=== PATIENT | male | born 1960 | race Caucasian/White ===

== ENCOUNTER 2017-12-08 21:01 | Observation (INO) | payer SELFPAY ==
--- NOTE | 2017-12-08 21:10 | ED.PDOC ---
History of Present Illness - General Chief Complaint: Chest Pain/[place] Stated Complaint: chest pain Time Seen by Provider: 12/08/17 21:09 Source: patient Exam Limitations: no limitations - History of Present Illness Initial Comments: Álvaro Davenport 57 y/o male stated that he had been having SOB and feels heart is racing the last 3 days progressively getting worse.Denies chest pain.He has history of paroxysmal A. fib but was placed on aspirin;had one time cardioversion done here in ER Timing/Duration: other - 3 days Severity/Quality: other - no chest pains Location: other - none Chest Pain Radiation: other - none Improving Factors: nothing Worsening Factors: nothing Nitro Today/Relief: 0.4 mg x 1, provided by ED Aspirin Treatment Today: 81 mg x 4, provided by ED Associated Symptoms: fatigue, shortness of breath Allergies/Adverse Reactions: Allergies NO KNOWN ALLERGY Allergy (Verified 12/08/17 22:07) Review of Systems - Review of Systems Constitutional: States: no symptoms reported EENTM: States: no symptoms reported Respiratory: States: no symptoms reported Cardiology: States: see HPI Gastrointestinal/Abdominal: States: no symptoms reported Genitourinary: States: no symptoms reported All other Systems: Reviewed and Negative, No Change from Baseline Past Medical History (General) - Patient Medical History Hx Cardiac Disorders: Yes - [place] at age 49 Surgical History: no surgical history - Vaccination History Hx Tetanus, Diphtheria Vaccination: No Hx Influenza Vaccination: No Hx Pneumococcal Vaccination: No - Social History Hx Tobacco Use: Yes Hx Alcohol Use: No Hx Substance Use: No Hx Substance Use Treatment: No Hx Depression: No - Female History Patient : No Family Medical History - Family History Mother Family History: Unknown Physical Exam - Physical Exam General Appearance: Alert, Anxious, No apparent distress Eyes, Ears, Nose, Throat Exam: normal ENT inspection Neck: non-tender, full range of motion, supple Respiratory: chest non-tender, decreased breath sounds Cardiovascular/Chest: tachycardia - heart rate 134, irregularly irregular Progress - Progress Progress: 12/09/17 00:22 Last Vital Signs Temp 99.1 F 12/09/17 00:12 Pulse 125 H 12/09/17 00:17 Resp 20 12/09/17 00:12 BP 104/59 12/09/17 00:17 Pulse Ox 95 12/09/17 00:17 - Results/Orders Results/Orders: 12/08/17 21:10 B-TYPE NATRIURETIC PEPTIDE/BNP Stat CARDIAC PANEL,ER Stat HEPATIC FUNCTION PANEL Stat 12/08/17 23:54 Sodium Chloride 0.9% 1000ML [Ns 1000 ml] 1,000 ml IVS ONCE Laboratory Results - last 24 hr 12/08/17 12/08/17 21:20 22:12 WBC 7.5 RBC 5.05 Hgb 15.3 Hct 45.8 MCV 90.6 MCH 30.4 MCHC 33.5 RDW 15.2 H Plt Count 109 L MPV 9.5 Absolute Neuts (auto) 6.20 Absolute Lymphs (auto) 0.60 L Absolute Monos (auto) 0.60 Absolute Eos (auto) 0.00 Absolute Basos (auto) 0.00 Neutrophils % 83.6 H Lymphocytes % 7.9 L Monocytes % 7.5 Eosinophils % 0.4 L Basophils % 0.6 PT 13.4 H INR 1.190 PTT (SP) 33.3 Sodium 135 Potassium 3.9 Chloride 105 Carbon Dioxide 19 L Anion Gap 14.9 BUN 17 Creatinine 1.28 BUN/Creatinine Ratio 13.3 Random Glucose 93 Serum Osmolality 271.3 L Calcium 9.3 Magnesium 1.5 L Total Bilirubin 0.9 Direct Bilirubin 0.2 Indirect Bilirubin 0.7 AST 16 ALT 20 Alkaline Phosphatase 48 Creatine Kinase 53 CK-MB (CK-2) 0.9 CK-MB (CK-2) % Not Reportable Troponin I 0.05 0.06 H B-Natriuretic Peptide 423.0 H* Serum Total Protein 7.2 Albumin 4.2 FLU B -positive - EKG/XRAY/CT EKG: Atrial, Fibrillation Comments: heart rate 153 XRAY: chest - no acute abnormalities Departure - Departure Clinical Impression: Influenza B, Atrial fibrillation with rapid ventricular response, Troponin I above reference range Time of Disposition: 00:29 Disposition: Admit Patient Condition: Fair Departure Forms: ED Discharge - Pt. Copy, Patient Portal Self Enrollment Referrals: Peña Rosado MD [Primary Care Provider] - 1-2 Weeks Decision To Admit - Decistion To Admit Decision to Admit Reason: Admit from ER Decision to Admit Date: 12/09/17 - D/W Freddy Medellin ANP/Hospitalist Decision to Admit Time: 00:29
[2017-12-08] MEDS ORDERED: ACETAMINOPHEN 325 MG TAB PO ONE (21:20)
--- NOTE | 2017-12-08 22:02 | RAD ---
EXAM DESCRIPTION: Chest,1 View CLINICAL HISTORY: shortness of breath COMPARISON: 06/30/2016 FINDINGS: Single frontal view of the chest. The cardiomediastinal silhouette has normal size and contour. No consolidation, pneumothorax, or pleural effusion. No displaced rib fractures identified. Upper abdominal soft tissues are unremarkable. IMPRESSION: 1. No acute pulmonary process identified. Electronically signed by: Josh Haro 12/08/2017 10:01 PM [facility]
[2017-12-08] MEDS ORDERED: OSELTAMIVIR 75 MG CAP PO ONE (22:09)
[2017-12-08] MEDS ORDERED: MAGNESIUM SULFATE PREMIX 2GM 2 GM in PREMIX BAG 1 BAG IVPB ONE (22:10)
[2017-12-08] MEDS ORDERED: diltiaZEM HCL CD 180 MG CAP PO ONE (22:11)
[2017-12-08] MEDS ORDERED: MAGNESIUM SULFATE PREMIX 2GM 50 ML IVPB ONE (22:19)
[2017-12-08] MEDS ORDERED: SODIUM CHLORIDE 0.9% 1000ML 1,000 ML IVS ONE (23:54)
[2017-12-08] MEDS ORDERED: SODIUM CHLORIDE 0.9% 1000ML 1,000 ML ONE (23:56)
--- NOTE | 2017-12-09 00:35 | HP ---
SUPERVISING PHYSICIAN: Juan Farr MD CHIEF COMPLAINT: Shortness of breath and palpitations. HISTORY OF PRESENT ILLNESS: This is a 57-year-old male patient with a history of paroxysmal atrial fibrillation in the past who came to the Emergency Room with shortness of breath. He states for the last three days or so, he has had shortness of breath and it has progressively gotten worse. He denies any fever or chills, no cough, no nausea or vomiting. He was seen in the Emergency Room here and noted to be in atrial fibrillation with rapid ventricular response. Additionally, his workup included labs which were unremarkable for leukocytosis. He did have a temperature of 99.1. Chemistries were pretty much unremarkable except for low magnesium. This was replaced in the Emergency Room. He was initially dosed with some Tamiflu in the Emergency Room and was given 180 mg of Cardizem CD. He was referred for admission for the atrial fibrillation with rapid ventricular response. On the time of examination, the patient's heart rate was up in the 120s. Blood pressure is a little bit marginal. Systolically, he has been in the 90s and low 100s. He is in no active distress currently. PAST MEDICAL HISTORY: 1. Myocardial infarction at age 49 for which he had four stents total by Dr. Lizarraga. 2. Paroxysmal atrial fibrillation in the past. This used to be controlled with Sotalol and metoprolol, but he is not currently taking these medicines. PAST SURGICAL HISTORY: He denies any surgeries. CURRENT MEDICATIONS: 1. Aspirin 81 mg daily. ALLERGIES: NO KNOWN DRUG ALLERGIES. FAMILY HISTORY: Heart disease, hypertension. SOCIAL HISTORY: The patient smokes one pack every three to four days. No alcohol, no illicit drugs. REVIEW OF SYSTEMS: CONSTITUTIONAL: No fever or chills. No recent weight loss or weight gain. He has had some fatigue. HEENT: No headaches, vision changes, ear pain, nasal congestion or throat pain. RESPIRATORY: Positive for some shortness of breath. No cough, hemoptysis. CARDIOVASCULAR: Positive fro palpitations. No chest pain or peripheral edema. GASTROINTESTINAL: No nausea, vomiting, diarrhea, constipation or abdominal pain. GENITOURINARY: No dysuria, frequency or flank pain. INTEGUMENTARY: No rashes, lesions or wounds. ENDOCRINE: No polydipsia, polyuria, polyphagia. No heat or cold intolerance. PSYCHIATRIC: No anxiety or depression. MUSCULOSKELETAL: Positive for some body aches. No joint pain, muscle cramps or joint swelling. HEMATOLOGIC: No easy bruising and no transfusion reactions. PHYSICAL EXAMINATION: VITAL SIGNS: Blood pressure 104/67. Heart rate 116. Respiratory rate 22. Temperature 99.1. Oxygen saturation 97%. GENERAL: Mr. Davenport is a 57-year-old male patient in no severe distress. HEENT: Normocephalic, atraumatic. Pupils are equal and reactive. No nasal drainage. Throat with moist buccal mucosa. NECK: Supple. Midline trachea. No jugular venous distention. CHEST: Symmetrical with equal rise and fall of the chest with inspiration and expiration. Lung sounds are diminished in the bases. Otherwise, clear to auscultation bilaterally. CARDIOVASCULAR: Irregular rate and rhythm which is atrial fibrillation with rapid ventricular response per the current monitor. ABDOMEN: Soft. Positive bowel sounds. GENITOURINARY: Deferred. EXTREMITIES: Lower extremities with no edema. Pulses are 1+. Capillary refill less than 2 seconds. NEUROLOGIC: The patient is alert and oriented. LABORATORY: Labs and films have been reviewed on the EMR. Chest x-ray without any cardiopulmonary abnormalities. Labs are as discussed in the history of present illness. ASSESSMENT: 1. Atrial fibrillation with rapid ventricular response. 2. Influenza, type B. 3. Nicotine dependency. 4. Hypomagnesemia. 5. Thrombocytopenia. PLAN: 1. At this time, the patient has been given Cardizem p.o., long-acting. Blood pressure is a little bit marginal, so I will wait and see what this does for his heart rate. In the morning I will attempt to resume the Sotalol and potentially metoprolol that the patient is supposed to be on. He has not seen Dr. Lizarraga in three years or so and has stopped taking those medications. 2. I have placed him on therapeutic Lovenox for now. 3. Tamiflu has been ordered for his influenza, five days total. 4. I have started him on some IV fluids. His magnesium has already been replaced in the Emergency Room. 5. We will monitor his platelet count. I am unsure what significance this has at this time, but we will definitely monitor this. #[id number] [facility]
[2017-12-09] MEDS ORDERED: MAGNESIUM SULFATE PREMIX 2GM 2 GM in PREMIX BAG 1 BAG IVPB ONE (01:10)
[2017-12-09] MEDS: LACTATED RINGERS 1,000 ML IVS PRN ×2 (01:23→13:55)
[2017-12-09] MEDS ORDERED: ENOXAPARIN SODIUM 100 MG/ML SYG SUBCU ONE (01:25)
[2017-12-09] MEDS ORDERED: IV SET AND CAP CHANGE INJ INJ SCH (01:30)
[2017-12-09] MEDS: OMEPRAZOLE CAP 20 MG CAP PO SCH (06:03)
[2017-12-09] MEDS ORDERED: SODIUM CHLORIDE 0.9% 1000ML 1,000 ML IVS ONE (08:14)
[2017-12-09] MEDS: ENOXAPARIN SODIUM 100 MG/ML SYG SUBCU SCH ×2 (09:41→21:18)
[2017-12-09] MEDS: ASPIRIN (CHEWABLE) 81 MG TAB PO SCH (09:42)
[2017-12-09] MEDS: OSELTAMIVIR 75 MG CAP PO SCH ×2 (09:42→21:17)
[2017-12-09] MEDS ORDERED: methylPREDNISolone SODIUM SUC 125 MG/2 ML VIAL IV ONE (10:09)
[2017-12-09] MEDS ORDERED: LEVALBUTEROL NEBS 1.25 MG/3 ML VIAL NEB ONE (10:09)
[2017-12-09] MEDS: MORPHINE SULFATE INJ 10 MG/ML VIAL IV PRN ×2 (10:28→17:31)
[2017-12-09] MEDS ORDERED: FLUTICASONE PROP 0.05% NASAL 16 GM BTTL ONE (12:08)
[2017-12-09] MEDS: FLUTICASONE PROP 0.05% NASAL 16 GM BTTL BNAS SCH (13:27)
[2017-12-09] MEDS ORDERED: HYDROcodone 7.5MG/APAP 325MG 1 EA TAB PO PRN (14:23)
[2017-12-09] MEDS: methylPREDNISolone SODIUM SUC 125 MG/2 ML VIAL IV SCH ×2 (15:17→21:18)
[2017-12-09] MEDS: SODIUM CHLORIDE 0.9% (FLUSH) 10 ML SYG IV PRN ×2 (15:18→21:18)
[2017-12-09] MEDS: LEVALBUTEROL NEBS 1.25 MG/3 ML VIAL NEB SCH ×3 (15:36→20:56)
[2017-12-10] MEDS: LEVALBUTEROL NEBS 1.25 MG/3 ML VIAL NEB SCH ×6 (00:03→20:35)
[2017-12-10] MEDS: SODIUM CHLORIDE 0.9% (FLUSH) 10 ML SYG IV PRN ×2 (02:50→02:56)
[2017-12-10] MEDS: methylPREDNISolone SODIUM SUC 125 MG/2 ML VIAL IV SCH ×2 (02:50→08:08)
[2017-12-10] MEDS: MORPHINE SULFATE INJ 10 MG/ML VIAL IV PRN ×3 (02:56→21:44)
[2017-12-10] MEDS: LACTATED RINGERS 1,000 ML IVS PRN (02:56)
[2017-12-10] MEDS: OMEPRAZOLE CAP 20 MG CAP PO SCH (06:00)
--- NOTE | 2017-12-10 07:42 | RAD ---
EXAM DESCRIPTION: Chest,1 View CLINICAL HISTORY: dyspnea COMPARISON: December 08, 2017 IMPRESSION: Single AP portable upright view of the chest shows mild enlargement of the cardiomediastinal silhouette without pulmonary vascular surgeon. Lungs are normally aerated. Mild increased interstitial markings in the right suprahilar region appears new from previous and could represent developing infiltrate versus atelectasis. Lungs are otherwise clear. No obvious pleural effusion or pneumothorax is seen. Electronically signed by: Kurt Meza MD 12/10/2017 7:41 AM [facility]
[2017-12-10] MEDS: FLUTICASONE PROP 0.05% NASAL 16 GM BTTL BNAS SCH (08:08)
[2017-12-10] MEDS: OSELTAMIVIR 75 MG CAP PO SCH ×2 (08:09→21:29)
[2017-12-10] MEDS: ASPIRIN (CHEWABLE) 81 MG TAB PO SCH (08:09)
[2017-12-10] MEDS ORDERED: METOPROLOL TARTRATE INJ 5 MG/5 ML VIAL IV ONE ×2 (08:57→12:48)
[2017-12-10] MEDS: ENOXAPARIN SODIUM 100 MG/ML SYG SUBCU SCH ×2 (09:21→21:29)
[2017-12-10] MEDS ORDERED: METOPROLOL SUCCINATE XL 25 MG TAB PO SCH (10:00)
[2017-12-10] MEDS ORDERED: MAGNESIUM SULFATE PREMIX 2GM 2 GM in PREMIX BAG 1 BAG IVPB ONE (11:16)
[2017-12-10] MEDS ORDERED: MAGNESIUM SULFATE PREMIX 2GM 50 ML IVPB ONE (11:34)
[2017-12-10] MEDS ORDERED: methylPREDNISolone SODIUM SUC 40 MG/ML VIAL ONE (11:40)
[2017-12-10] MEDS: methylPREDNISolone SODIUM SUC 40 MG/ML VIAL IV SCH ×3 (11:41→23:46)
[2017-12-10] MEDS ORDERED: METOPROLOL TARTRATE 25 MG TAB PO ONE ×2 (13:09→22:59)
--- NOTE | 2017-12-10 13:47 | PN ---
SUPERVISING PHYSICIAN: Juan Farr MD DATE: 12/10/17 SUBJECTIVE: The patient is sitting in his hospital bed. He has no complaints of chest pain, nausea, vomiting, shortness of breath. He does occasionally feel palpitations when his heart rate goes up, but no other complaints. He has had palpitations on and off for many years due to his heart attack at age 49 and has been seen in the past by Dr. Lizarraga. He did quit taking his medications mostly due to the fact that he lost his insurance and they were expensive. OBJECTIVE: VITAL SIGNS: Afebrile. Heart rate is presently 128. It has been as low as 71 and as high as the 150s. Blood pressure 150/58. Respiratory rate 18. O2 sat 95% on room air. LUNGS: Essentially clear to auscultation bilaterally. CARDIAC: Tachycardic rate and irregular rhythm. Atrial fibrillation on the rn cardiac rehab. GASTROINTESTINAL: Abdomen is soft, nondistended, nontender. Bowel sounds are positive. EXTREMITIES: No cyanosis, clubbing or edema. NEUROLOGIC: Awake, alert and oriented times three. LABORATORY: WBC 5.1, hemoglobin 13.7, hematocrit 41.2, platelet count 88. Sodium 135, potassium 3.8, chloride 106, carbon dioxide 20, BUN 18, creatinine 1.02, glucose 163, calcium 8.7, magnesium. 17. Chest x-ray shows mild enlargement of the cardiomediastinal silhouette without pulmonary vascular congestion. There are mild increased interstitial markings in the right suprahilar region appearing from previous and could represent developing infiltrate versus atelectasis. Lungs are otherwise clear. No obvious pleural effusion or pneumothorax seen. All other labs and films have been reviewed via the EMR. ASSESSMENT: 1. Atrial fibrillation with rapid ventricular response. 2. Influenza, type B. 3. Nicotine dependency. 4. Hypomagnesemia. 5. Thrombocytopenia. 6. Poor medical compliance. PLAN: We will continue present supportive care. The p.o. Cardizem was not started yesterday due to his marginal blood pressures. Today, his heart rate went up and his blood pressures have improved. He was given some IV Lopressor early this morning and it brought his heart rate down to the 90s to low 100s. He was restarted on his metoprolol succinate. After discussing with the patient that he could not afford his medications, I changed him to metoprolol tartrate. He required an additional dosage of the Lopressor IV this afternoon and his heart rate is now down to the 100s and I will start him on metoprolol tartrate 25 mg b.i.d. I will also consult Dr. Lizarraga to see him tomorrow. It has been approximately 3+ years since he has seen him. I have talked to patient in depth about compliance with his medications. His magnesium was also low today, so I have replaced his magnesium. I will stop his IV fluids. We will continue to monitor the patient closely and follow as needed. I think after he sees Dr. Lizarraga tomorrow he can be discharged home with close followup. Dr. Farr is the collaborating physician and available for consultation. #[id number] [facility]
[2017-12-10] MEDS ORDERED: LACTATED RINGERS 0 ML ONE (16:27)
[2017-12-10] MEDS ORDERED: METOPROLOL TARTRATE 50 MG TAB PO SCH (21:00)
[2017-12-10] MEDS ORDERED: METOPROLOL TARTRATE 25 MG TAB PO SCH (21:00)
[2017-12-10] MEDS: SODIUM CHLORIDE 0.9% (FLUSH) 10 ML SYG IV SCH (21:29)
[2017-12-10] MEDS ORDERED: METOPROLOL SUCCINATE XL 25 MG TAB PO ONE (23:10)
[2017-12-11] MEDS: LEVALBUTEROL NEBS 1.25 MG/3 ML VIAL NEB SCH ×3 (00:25→08:18)
[2017-12-11] MEDS: methylPREDNISolone SODIUM SUC 40 MG/ML VIAL IV SCH (05:37)
[2017-12-11] MEDS: OMEPRAZOLE CAP 20 MG CAP PO SCH (06:03)
--- NOTE | 2017-12-11 06:41 | RAD ---
EXAM DESCRIPTION: Chest,2 Views CLINICAL HISTORY: pna COMPARISON: 12/10/2017 FINDINGS: Frontal and lateral views of the chest. At the scar calcification of the thoracic aorta. Heart is not enlarged. Leads overlie the chest. Redemonstrated right suprahilar opacity. No pneumothorax or pleural effusion. No acute osseous abnormality. Upper abdominal soft tissues are unremarkable. IMPRESSION: 1. Persistent right suprahilar/perihilar opacity which may represent atelectasis or developing pneumonia. Continued radiographic follow-up to resolution recommended. Electronically signed by: Josh Haro 12/11/2017 6:40 AM [facility]
[2017-12-11] MEDS ORDERED: METOPROLOL TARTRATE 50 MG TAB ONE (07:23)
[2017-12-11] MEDS: OSELTAMIVIR 75 MG CAP PO SCH (08:13)
[2017-12-11] MEDS: ASPIRIN (CHEWABLE) 81 MG TAB PO SCH (08:13)
[2017-12-11] MEDS: FLUTICASONE PROP 0.05% NASAL 16 GM BTTL BNAS SCH (08:13)
[2017-12-11] MEDS: SODIUM CHLORIDE 0.9% (FLUSH) 10 ML SYG IV SCH (08:17)
[2017-12-11] MEDS ORDERED: predniSONE 20 MG TAB PO SCH (09:00)
[2017-12-11] MEDS ORDERED: METOPROLOL TARTRATE 25 MG TAB PO SCH (09:00)
[2017-12-11] MEDS: ENOXAPARIN SODIUM 100 MG/ML SYG SUBCU SCH (09:07)
[2017-12-11 10:23] VITALS: BP 115/70; TEMP 96.3; O2SAT 96
[2017-12-11] MEDS ORDERED: SOTALOL 80 MG TAB ONE (14:12)
[2017-12-11] MEDS ORDERED: SOTALOL 80 MG TAB PO SCH (14:30)
--- NOTE | 2017-12-12 13:06 | DS ---
SUPERVISING PHYSICIAN: Juan Farr MD DISCHARGE DIAGNOSIS: 1. Atrial fibrillation with rapid ventricular response. 2. Influenza type B. 3. Nicotine dependency. 4. Hypomagnesemia. 5. Thrombocytopenia. 6. Poor medical compliance. HISTORY OF PRESENT ILLNESS: This is a 57 year-old male patient who presented to the Emergency Room with shortness of breath and has a significant history of paroxysmal atrial fibrillation in the past. Three days prior to admission he had shortness of breath and it had progressively worsened. He denied any fever or chills. No cough, nausea or vomiting. He also said he experiences palpitations frequency and had a heart attack several years ago and has been in atrial fibrillation for several years. 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 Lizarraga , several years ago but had taken himself off his medications including his anticoagulants which he could not afford at that time. His chemistries in the Emergency Room were mostly within normal limits except for a low magnesium. He did have a temperature of 99.1. He was positive for Flu B and initially dosed with some Tamiflu in the Emergency Room as well as given some p.o. Cardizem. He was admitted to the hospital for atrial fibrillation with rapid ventricular response.and his heart rate was up into the 120s. His blood pressure was on the low side and he was placed in the hospital and his medications as well as he saw Dr. Lizarraga in clinic on Thursday. Metoprolol was started as a low-dose to allow his blood pressure to stabilize. He had no complaints of chest pain or shortness of breath after he was admitted. He had several episodes that his heart rate was elevated and was given some IV Lopressor and then he saw Dr. Lizarraga earlier today and Dr. Lizarraga recommended that the patient be started on Sotalol 80 mg b.i.d. as well as Cardizem 240. Dr. Lizarraga recommended that the patient also be given some sort of anticoagulant therapy such as Coumadin. The patient said he did not want to stay in the hospital. He was given his initial dose of Sotalol as well as his Cardizem. It was recommended to him that he stay in the hospital due to need for watching his new medications as well as to give his anticoagulant started. He refused to stay in the hospital and he left against medical advice. DISCHARGE PLAN: The patient was again cautioned about leaving the hospital. He refused and said he was leaving against medical advice. I did write him prescriptions for his Sotalol and his Cardizem and he does have a close followup with Dr. Rosado on Thursday. He is to return to the hospital for any further problems or complications. DISCHARGE MEDICATIONS: 1. Aspirin. 2. Diltiazem. 3. Sotalol. Dr. Farr is the collaborating physician available for consultation. #[id number] MTDD
== END 2017-12-11 14:30 | disposition left against medical advice (07) ==
LOC: ER 21:01 → UNDOADMOB 12-09 00:33 → INTOOBSV 12-09 00:33 → MS 12-09 00:33 → UNDODISOB 12-11 14:40
PROVIDERS: ADMIT Nurse Practitioner; ATTEND Nurse Practitioner Acute Care
DX: I48.0 Paroxysmal atrial fibrillation (principal); J10.1 Influenza due to other identified influenza virus with other respiratory manifestations; F17.210 Nicotine dependence, cigarettes, uncomplicated; E83.42 Hypomagnesemia; D69.6 Thrombocytopenia, unspecified; I25.2 Old myocardial infarction; Z91.14 Patient's other noncompliance with medication regimen; Z79.82 Long term (current) use of aspirin; Z95.5 Presence of coronary angioplasty implant and graft; Z82.49 Family history of ischemic heart disease and other diseases of the circulatory system
CPT/HCPCS: 36415 ×7; 71045 ×2; 71046; 80048 ×4; 80076; 82550 ×2; 82553 ×2; 83735 ×3; 83880; 84443; 84484 ×3; 85025 ×4; 85379 ×2; 85610 ×2; 85730 ×2; 87502; 93005 ×3; 94640 ×11; 94760 ×4; 96361 ×2; 96365; 96366; 96372 ×3; 96375 ×2; 96376 ×3; 99284; G0378; J1030 ×4; J1650 ×6; J2270 ×5; J2930 ×5; J3475 ×2; J7030 ×2; J7120 ×3; J7512; J7614 ×12

== ENCOUNTER 2017-12-11 20:49 | Inpatient (IN) | payer SELFPAY ==
[2017-12-11] MEDS ORDERED: SODIUM CHLORIDE 0.9% (FLUSH) 10 ML SYG IV PRN ×2 (21:04→23:40)
[2017-12-11] MEDS ORDERED: SODIUM CHLORIDE 0.9% 1000ML 1,000 ML IVS ONE ×2 (21:05→21:51)
--- NOTE | 2017-12-11 21:18 | ED.PDOC ---
History of Present Illness - General Stated Complaint: DIFFICULTY BREATHING COUGHING UP BLOOD Time Seen by Provider: 12/11/17 21:14 Source: patient Additional Information: 57 YEAR OLD WHITE MALE PRESENTS TO THE ER WITH CHEIF COMPLAINTS OF HEMOPTYSIS AND SHORTNESS OF BREATH ONSET FEW HOURS PRIOR TO COMING HE WENT AGAINST AMA THIS MORNING AFTER BEING ADMITTED FOR INFLUENZA ATRIAL FIBRILLATION HE HAS HAD CAD RI AT AGE 47 WHILE LIVING IN [place] HE HAD STENT X4 AT AGE 47 HE IS A CHRONIC SMOKER ADOPTED THEREFORE NO FAMILY HISTORY AVAILABLE HE WAS BROUGHT HERE BY PRIVATE CAR BY A COWORKER HE HAS RECEIVED LOVENIX SOTOLOL 80 MG AND CARDIZEM 240 THIS AFTERNOON PRIOR TO LEAVING AMA - History of Present Illness Timing/Duration: 4-6 hours Severity: moderate Improving Factors: nothing Worsening Factors: nothing Associated Symptoms: shortness of breath Allergies/Adverse Reactions: Allergies NO KNOWN ALLERGY Allergy (Verified 12/08/17 22:07) Home Medications: Ambulatory Orders Aspirin [(None)] 325 mg PO DAILY 12/11/17 Diltiazem HCl Coated Beads [Diltiazem Cd] 240 mg PO DAILY #30 cap 12/11/17 Sotalol HCl 80 mg PO BID #60 tab 12/11/17 Review of Systems - Review of Systems Constitutional: States: no symptoms reported, weakness EENTM: States: no symptoms reported Respiratory: States: short of breath Cardiology: States: no symptoms reported Gastrointestinal/Abdominal: States: no symptoms reported Genitourinary: States: no symptoms reported Musculoskeletal: States: no symptoms reported Skin: States: no symptoms reported Neurological: States: no symptoms reported Endocrine: States: no symptoms reported Hematologic/Lymphatic: States: no symptoms reported Past Medical History (General) - Patient Medical History Hx Seizures: No Hx Stroke: No Hx Asthma: No Hx of COPD: No Hx Cardiac Disorders: Yes - [place] at age 49 Hx Congestive Heart Failure: No Hx Pacemaker: No Hx Hypertension: No Hx Diabetes: No Hx MRSA: No - Vaccination History Hx Tetanus, Diphtheria Vaccination: No Hx Influenza Vaccination: No Hx Pneumococcal Vaccination: No - Social History Hx Tobacco Use: Yes Hx Alcohol Use: No Hx Substance Use: No Hx Substance Use Treatment: No Hx Depression: No - Female History Patient : No Family Medical History - Family History Mother Family History: Unknown Physical Exam - Physical Exam General Appearance: Alert, Anxious Eye Exam: bilateral normal Ears, Nose, Throat: hearing grossly normal, normal ENT inspection, normal pharynx Neck: non-tender, full range of motion, supple Respiratory: chest non-tender, lungs clear, normal breath sounds, no respiratory distress, no accessory muscle use Cardiovascular/Chest: normal peripheral pulses, no edema, no gallop, no JVD, no murmur, irregularly irregular Peripheral Pulses: radial,right: 2+, radial,left: 2+, femoral,right: 2+, femoral ,left: 2+, popliteal,right: 2+, popliteal,left: 2+ Gastrointestinal/Abdominal: normal bowel sounds, non tender, soft, no organomegaly, no pulsatile mass Back Exam: no CVA tenderness, no vertebral tenderness Extremity: normal range of motion, non-tender 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, no motor/sensory deficits, alert, normal mood/affect, oriented x 3 Skin Exam: diaphoresis Lymphatic: no adenopathy Departure - Departure Clinical Impression: Atrial fibrillation, Hypotension Time of Disposition: 23:06 Disposition: Admit Patient Condition: Poor Referrals: Peña Rosado MD [Primary Care Provider] - 1-2 Weeks Home Medications: Ambulatory Orders Aspirin [(None)] 325 mg PO DAILY 12/11/17 Diltiazem HCl Coated Beads [Diltiazem Cd] 240 mg PO DAILY #30 cap 12/11/17 Sotalol HCl 80 mg PO BID #60 tab 12/11/17 Decision To Admit - Decistion To Admit Decision to Admit Reason: Medical Nature - ATRIAL FIBRILLATION HYPOTENSION MILD HEMOPTYSIS Decision to Admit Date: 12/11/17 Decision to Admit Time: 23:06
--- NOTE | 2017-12-11 21:46 | RAD ---
EXAM DESCRIPTION: Chest,1 View CLINICAL HISTORY: shortness of breath COMPARISON: December 10, 2017 FINDINGS: Cardiac silhouette is within normal limits. EKG leads project over the chest. There is atherosclerosis. Vague reticular opacities in the right lung could be secondary to mild pulmonary edema versus atelectasis. Left costophrenic angle was not included in the examination.. There is no acute osseous process visualized. IMPRESSION: Vague reticular opacities in the right lung could be secondary to asymmetric mild pulmonary edema versus atelectasis. Other etiologies not excluded. Recommend follow-up. Electronically signed by: Bereket Salter MD 12/11/2017 9:45 PM RN ACCESS
[2017-12-11] MEDS ORDERED: IPRATROPIUM/ALBUTEROL 3 ML VIAL NEB ONE (22:51)
[2017-12-11] MEDS ORDERED: LEVALBUTEROL NEBS 1.25 MG/3 ML VIAL NEB ONE (22:55)
--- NOTE | 2017-12-11 23:22 | HP ---
SUPERVISING PHYSICIAN: Juan Farr MD CHIEF COMPLAINT: Shortness of breath and palpitations. HISTORY OF PRESENT ILLNESS: This is a 57 year-old white male who came to the Emergency Room this evening with complaints of shortness of breath as well as bloody sputum. He had been released from the hospital approximately 5 hours prior to his coming into the Emergency Room and he left the hospital against medical advice. He had been in the hospital due to his atrial fibrillation RVR and had seen Dr. Lizarraga, legal instructor, the afternoon prior to his leaving against medical advice. Dr. Lizarraga had started him on some Sotalol and Cardizem and after taking new medications he left the hospital. Prior to leaving the hospital, he had received Sotalol 80 mg and Cardizem 240. Prior to his discharge, Dr. Lizarraga had recommended that he be started on Coumadin as well but that was not done due to him leaving against medical advice. In the Emergency Room his vital signs showed he was afebrile, his heart rate ranged from 126 to 101. His blood pressure was as low as 58/30 and on admission to the Floor it was 88/47. His 02 saturation had been in the mid 90s. Sputum was not collected as there was no hemoptysis while in the Emergency Room. He had been on a cardiac dose of Lovenox while in the hospital and had received Lovenox injection earlier in the day. His sputum was most likely was attributed to his Lovenox injection. His WBCs were elevated to 16.6 with a hemoglobin of 14.8 and hematocrit of 45.2. Platelet count 97,000. D-dimer was 231 and he had a PT of 11.2 an INR of 0.9 and PTT of 41.8. [id number], potassium .4.9, chloride 104, carbon dioxide 20, BUN 32, creatinine 1.23. Glucose was 127. BNP was 554. Chest x-ray per radiology interpretation shows vague reticular opacities in the right lung, could be secondary to asymmetrical mild pulmonary edema versus atelectasis. I was called for admission to the hospital. PAST MEDICAL HISTORY: 1. Myocardial infarction at age 49 for which he had four stents total by Dr. Lizarraga. 2. Paroxysmal atrial fibrillation in the past. This used to be controlled with Sotalol and metoprolol, but he is not currently taking these medicines. PAST SURGICAL HISTORY: He denies any surgeries. CURRENT MEDICATIONS: 1. Aspirin 81 mg daily. 2. Sotalol 80 mg b.i.d. 3. Cardizem CD 240 mg daily. ALLERGIES: NO KNOWN DRUG ALLERGIES. FAMILY HISTORY: Heart disease, hypertension. SOCIAL HISTORY: The patient smokes one pack every three to four days. No alcohol, no illicit drugs. REVIEW OF SYSTEMS: CONSTITUTIONAL: No fever or chills. No recent weight loss or weight gain. He has had some fatigue. HEENT: No headaches, vision changes, ear pain, nasal congestion or throat pain. RESPIRATORY: Positive for some shortness of breath. No cough, hemoptysis. CARDIOVASCULAR: Positive fro palpitations. No chest pain or peripheral edema. GASTROINTESTINAL: No nausea, vomiting, diarrhea, constipation or abdominal pain. GENITOURINARY: No dysuria, frequency or flank pain. INTEGUMENTARY: No rashes, lesions or wounds. ENDOCRINE: No polydipsia, polyuria, polyphagia. No heat or cold intolerance. PSYCHIATRIC: No anxiety or depression. MUSCULOSKELETAL: Positive for some body aches. No joint pain, muscle cramps or joint swelling. HEMATOLOGIC: No easy bruising and no transfusion reactions. PHYSICAL EXAMINATION: VITAL SIGNS: Heart rate 91, blood pressure 115/70, respiratory rate 18, 02 saturation 98% on room air. GENERAL: This is a 57 year-old male patient who is sitting up in his hospital room. He is in no acute distress. HEENT: Normocephalic and atraumatic. Pupils are equal and reactive. Oropharynx is clear. NECK: Supple without mass. There is no jugular venous distention. CHEST: Scattered crackles throughout, slightly diminished at the bases. There is equal rise and fall of the chest with inspiration and expiration. 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 ABDOMEN: Soft, nondistended, non-tender. Bowel sounds are positive. EXTREMITIES: No cyanosis, clubbing, or edema. NEUROLOGIC: He is alert and oriented x 3. LABS AND FILMS: As per the history of present illness. ASSESSMENT: 1. Hypotension secondary to new administration of medication which included a beta jodee and a calcium channel jodee. The patient leave the hospital against medical advice just after administration of new medications. 2. Congestive heart failure of unknown etiology with an elevated BNP of 554. I do not see any current diagnoses of congestive heart failure on the patient's chart. 4. Atrial fibrillation with rapid ventricular response, was just recently in the hospital and saw Dr. Lizarraga, legal instructor. He left the hospital just after administration of new medications on the same day as his re-admission to the hospital. 5. Shortness of breath, most likely secondary to his congestive heart failure. 6. Recent hospitalization for flu B. 7. Nicotine dependency. 8. Thrombocytopenia. PLAN: We will admit the patient to the hospital. I will hold off on his medications until in the morning when we can reevaluate his heart rate and blood pressure. He will need to be started on some sort of anticoagulant most likely Coumadin. Due to his lowered blood pressure, he may not be able to tolerate his new medications and he may need to have dig instead of the Cardizem. We will also restart him on Tamiflu, he will need 3 additional doses of that. His platelet count will also need to be monitored as patient has no history of any thrombocytopenia. The patient will need extensive teaching about congestive heart failure as well as his new cardiac medications and anticoagulation therapy. He has been given some Lasix and we will need to send him home on some diuretic until further evaluation of his congestive heart failure. We will continue to monitor the patient closely and follow as needed. Dr. Farr is the collaborating physician available for consultation. #[id number] TIM
[2017-12-11] MEDS ORDERED: LEVALBUTEROL NEBS 1.25 MG/3 ML VIAL INH PRN (23:43)
[2017-12-11] MEDS ORDERED: PANTOPRAZOLE SODIUM IV 40 MG VIAL IV SCH (23:45)
[2017-12-12] MEDS ORDERED: LEVALBUTEROL NEBS 1.25 MG/3 ML VIAL INH SCH
[2017-12-12] MEDS: IV SET AND CAP CHANGE INJ INJ SCH (00:37)
[2017-12-12] MEDS ORDERED: IPRATROPIUM/ALBUTEROL 3 ML VIAL NEB ONE (03:06)
[2017-12-12] MEDS ORDERED: methylPREDNISolone SODIUM SUC 125 MG/2 ML VIAL IV ONE (03:08)
[2017-12-12] MEDS ORDERED: FUROSEMIDE INJ 40 MG/4 ML VIAL IV ONE (06:08)
[2017-12-12] MEDS ORDERED: LEVALBUTEROL NEBS 1.25 MG/3 ML VIAL NEB SCH (08:00)
[2017-12-12] MEDS: SODIUM CHLORIDE 0.9% (FLUSH) 10 ML SYG IV SCH ×2 (08:11→20:21)
[2017-12-12] MEDS: ASPIRIN TABLET 325 MG TAB PO SCH (08:18)
[2017-12-12] MEDS: SOTALOL 80 MG TAB PO SCH ×2 (09:04→20:20)
[2017-12-12] MEDS ORDERED: KETOROLAC TROMETHAMINE INJ 30 MG/ML VIAL IV ONE (10:23)
[2017-12-12] MEDS ORDERED: MORPHINE SULFATE INJ 10 MG/ML VIAL IV ONE (10:25)
[2017-12-12] MEDS ORDERED: cefTRIAXone SODIUM 1 GM in SODIUM CHL 0.9% 50ML MIN-BAG+ 50 ML IVPB SCH (10:30)
[2017-12-12] MEDS ORDERED: AZITHROMYCIN IV 500 MG in SODIUM CHLORIDE 0.9% 250ML 250 ML IVPB SCH (10:30)
[2017-12-12] MEDS ORDERED: SODIUM CHL 0.9% 50ML MIN-BAG+ 0 ML IVPB ONE (10:33)
[2017-12-12] MEDS ORDERED: cefTRIAXone SODIUM 1 GM VIAL ONE (10:33)
[2017-12-12] MEDS ORDERED: DIGOXIN INJ 0.5 MG/2 ML AMP IV ONE ×3 (10:39→23:55)
[2017-12-12] MEDS ORDERED: methylPREDNISolone SODIUM SUC 40 MG/ML VIAL ONE (10:40)
[2017-12-12] MEDS: OSELTAMIVIR 75 MG CAP PO SCH ×2 (10:48→20:20)
[2017-12-12] MEDS: methylPREDNISolone SODIUM SUC 40 MG/ML VIAL IV SCH ×2 (10:48→20:20)
[2017-12-12] MEDS: levoFLOXacin 500 MG TAB PO SCH (10:48)
[2017-12-12] MEDS: WARFARIN SODIUM 5 MG TAB PO SCH (11:02)
[2017-12-12] MEDS: LEVALBUTEROL NEBS 1.25 MG/3 ML VIAL NEB PRN ×3 (12:37→19:57)
--- NOTE | 2017-12-12 14:13 | PCM.CORE ---
Physician DVT/VTE - Nurse DVT Assessment & Total Each Risk Factor Represents 3 Points: Medical PT with Hx of IN, CHF, Severe infection/sepsis Each Risk Factor Represents 1 Point: Age 41-60 DVT Assessment Score: 4 - 5 or more Very High Risk Treatments: Early Ambulation *, Sequential Compression Device Pharmacological: Warfarin daily
[2017-12-12] MEDS ORDERED: FUROSEMIDE INJ 20 MG/2 ML VIAL IV ONE (15:00)
--- NOTE | 2017-12-12 15:18 | PN ---
DATE: 12/12/17 SUPERVISING PHYSICIAN: Juan Farr M.D. SUBJECTIVE: The patient continues to have a fairly rapid heart rate, although better controlled previous to admission after being started on Sotalol. He does have continued shortness of breath with any exertional effort as well as has some worsening respiratory efforts with any supine position. I discussed with him the fact that we are going to add additional medications to further control his heart rate, including Digoxin along with the Sotalol, and then he will have to be on Warfarin given that he was unable to afford his medications in the past due to financial constraints and the madden of Eliquis. He remains without any chest pains, nausea or vomiting. OBJECTIVE: VITAL SIGNS: Temperature 97.8, pulse is between 91 to 139, blood pressure 105/84 with heart rate at time of blood pressure measurement at 118, satting 96% on room air with a respiratory effort of 16. I's and O's show a negative balance of 1,000 with 150 in, 1150 out. Weight is 93.1 kg. CHEST: Continues to have crackles throughout, although very faint with some inspiratory and expiratory wheezing and overall breath sounds decreased towards the bases. HEART: Continues to have a regular rate and rhythm with atrial fibrillation on bedside monitor with a rapid ventricular rate. ABDOMEN: Soft, non-tender. Positive bowel sounds. EXTREMITIES: No clubbing, cyanosis or edema. NEUROLOGIC: He is alert and oriented times three. LABORATORY: White count is down to 13,300, hemoglobin 14.6, hematocrit 44.2, platelet count 84,000. Differential does show a left shift. Coagulation studies show a normal PT of 11.2 and INR of 0.9 with PTT of 41.8. Chemistries show normal electrolytes with an elevated BUN of 41, creatinine 1.09 and calcium 8.9. Digoxin level was 0.3. RADIOLOGY: Chest x-ray on admission again showed a vague reticular opacity in the right lung which could represent asymmetric mild pulmonary edema versus atelectasis with followup in the morning for repeat chest. ASSESSMENT: 1. Hypotension on admission secondary to administration of both a beta jodee and calcium channel jodee after the patient left against medical advice just after administration of new medications. 2. Acute onset of congestive heart failure, unknown etiology with elevated BNP on admission of 554 with the patient having no formal diagnosis of congestive heart failure need further adjustment of medications and close followup with an echocardiogram recommended. 3. Atrial fibrillation with rapid ventricular response, recently in the hospital after leaving against medical advice readmitted with continued rapid ventricular response requiring initiation of new medications to include Digoxin along with current medications of Sotalol as well as coagulation therapy with Coumadin. 4. Shortness of breath secondary to underlying congestive heart failure exacerbated by recent Influenza infection with flu B. 5. Chronic obstructive pulmonary disease in a chronic smoker with exacerbation secondary to recent Influenza infection with concerns for early developing chronic bronchitis and possible community acquired pneumonia requiring initiation of parenteral antibiotics. 6. Nicotine addiction. 7. Thrombocytopenia, uncertain etiology. PLAN: The patient will be started on new medications today to include Levaquin for the concerns for developing pneumonia as well as will continue with Solu- Medrol as he does have some decreased breath sounds and wheezing. His Solu- Medrol will be at 30 mg every 12 hours for 2 doses with reevaluation in the morning. He will be started on Coumadin today initially with 5 mg and adjusted accordingly. He continues to have erratic rhythm and in efforts to control heart rate given that he is on Sotalol, will load him on Digoxin in efforts to better control his rate to start out with 250 mg every 6 hours for 3 doses and adjust according to clinical presentation and current vital signs. He will certainly need an echocardiogram at some point. Discussed with him that we would probably try a second dose of Lasix this afternoon as he was showing good response with the initial dose this morning. Will continue to monitor the thrombocytopenia closely. Will anticipate at least another 24 to 48 hours of hospitalization required to further adjust his cardiac medications to better control his heart rate as he has demonstrated in the past some hypotension with new medications that included Cardizem, therefore he will need close monitoring while he is being loaded on Digoxin. We have continued his Sotalol 80 mg b.i.d. and will adjust according to effect. Until discharge, will continue to monitor closely and treat appropriately. #[id number] [facility]
[2017-12-12] MEDS: ALPRAZolam 0.25 MG TAB PO PRN (20:20)
[2017-12-12] MEDS: PANTOPRAZOLE SODIUM IV 40 MG VIAL IV SCH (20:32)
[2017-12-12] MEDS ORDERED: SOTALOL 80 MG TAB PO SCH (21:00)
[2017-12-13] MEDS: SODIUM CHLORIDE 0.9% (FLUSH) 10 ML SYG IV SCH ×2 (08:02→21:24)
[2017-12-13] MEDS: OSELTAMIVIR 75 MG CAP PO SCH ×2 (08:02→21:22)
[2017-12-13] MEDS: ASPIRIN TABLET 325 MG TAB PO SCH (08:02)
[2017-12-13] MEDS: SOTALOL 80 MG TAB PO SCH ×2 (08:03→21:22)
[2017-12-13] MEDS: LEVALBUTEROL NEBS 1.25 MG/3 ML VIAL NEB PRN ×3 (08:12→20:44)
--- NOTE | 2017-12-13 08:53 | RAD ---
Procedure: XR CHEST 2 VIEWS Exam Date: 12/13/2017 7:42 AM [employer] Ordering Provider: Freddy Marrero NP Clinical Indication: chf, Recent Flu B infection Comparison: December 11, 2017 Findings: The lungs are clear and well-aerated. No pleural effusion or pneumothorax. Cardiac silhouette is normal in size. Impression: No acute pulmonary process. Electronically signed by: Sloan Andrew MD 12/13/2017 8:53 AM [employer]
[2017-12-13] MEDS ORDERED: DIGOXIN INJ 0.5 MG/2 ML AMP IV ONE ×2 (09:00→17:23)
[2017-12-13] MEDS: FUROSEMIDE 40 MG TAB PO SCH (09:22)
[2017-12-13] MEDS: predniSONE 20 MG TAB PO SCH (10:54)
[2017-12-13] MEDS: levoFLOXacin 500 MG TAB PO SCH (10:54)
[2017-12-13] MEDS: ALPRAZolam 0.25 MG TAB PO PRN (11:01)
[2017-12-13] MEDS: WARFARIN SODIUM 5 MG TAB PO SCH (11:01)
[2017-12-13] MEDS ORDERED: HYDROcodone 5MG/APAP 325MG 1 EA TAB PO PRN (13:20)
[2017-12-13] MEDS ORDERED: SODIUM CHLORIDE 0.9% 500ML 500 ML IVS ONE (17:30)
[2017-12-13] MEDS: PANTOPRAZOLE SODIUM IV 40 MG VIAL IV SCH (21:23)
--- NOTE | 2017-12-13 21:28 | PN ---
DATE: 12/13/17 SUPERVISING PHYSICIAN: Paul Tesfaye M.D. SUBJECTIVE: The patient says he feels much better today. He is responding well to his Lasix, diuresing well over 4 liters as well as dropping his weight by almost 8 pounds. This morning he is able to actually lie supine without any significant dyspnea as well as he is having less exertional dyspnea. He remains afebrile. He has had no chest pains. His heart rate has been better controlled after starting on Digoxin which he has tolerated without any complications as well as with a combination of Sotalol. OBJECTIVE: VITAL SIGNS: temperature 97.4, pulse is irregular but ranging from 97 to 115. Blood pressure 117/75 with respirations 18, satting 94% on room air. I's and O's show a negative balance of 3200 with 550 in, 3750 out. Weight is 89.1 kg down from initial of 93.1 on admission. CHEST: Lungs are much clearer today but continue to be diminished towards the bases, but no obvious rhonchi or rales or wheezing is noted. HEART: Irregular rate and rhythm with notable control of ventricular rate on the court recording monitor with the patient still being in atrial fibrillation. ABDOMEN: Soft, non-tender. Positive bowel sounds. EXTREMITIES: No clubbing, cyanosis or edema. NEUROLOGIC : He is alert and oriented times three. LABORATORY: CBC today shows a normal white count at 9,200, hemoglobin 13.3, hematocrit 40.1, platelet count is at 74,000 with differential continuing to show a left shift. PT this morning was 13 with INR of 1.15. Chemistries show normal electrolytes today with sodium 138, potassium 4.2, BUN 36, creatinine 1.06, calcium 8.8. Magnesium yesterday was 2.1. Digoxin level initially before initiation of Digoxin 0.3 with level after loading dosage to be therapeutic at 1.0. RADIOLOGY: Chest x-ray two view chest per radiology interpretation showed the lungs to be clear and well aerated. No pleural effusions or pneumothoraxes were noted. EKG prior to initiation of Digoxin showed atrial fibrillation with rapid ventricular response with no significant change compared to previous initial EKGs on admission. ASSESSMENT: 1. Hypotension on admission secondary to administration of both a beta jodee and calcium channel jodee after attempting to control ventricular rate with atrial fibrillation after the patient had left against medical advice just after administration of new medications now showing improvement with modification of medication regimen to include Sotalol and Digoxin. 2. Acute onset of congestive heart failure with the patient having no formal history of congestive heart failure with uncertain etiology with the patient having an admission BNP of 554 with good response with diuresis and further control of his ventricular rate. The patient will certainly need close followup at discharge as well as an echocardiogram. 3. Atrial fibrillation with rapid ventricular response on admission requiring initiation of Digoxin along with Sotalol and close monitoring as well as anticoagulation therapy with Coumadin. 4. Dyspnea secondary to underlying congestive heart failure exacerbated by atrial fibrillation rapid ventricular response and recent Influenza infection with flu B. 5. Chronic obstructive pulmonary disease in a chronic smoker with exacerbation secondary to recent Influenza infection with concerns for developing chronic bronchitis and possible community acquired pneumonia requiring initiation of parenteral antibiotics with the patient showing good response to treatment. 6. Nicotine addiction in a chronic smoker with continuation of encouragement to stop smoking. 7. Persistent thrombocytopenia with slight worsening, uncertain etiology requiring close monitoring. PLAN: The patient will continue on current medications today to include Levaquin for continued coverage for possible pneumonia. He did receive additional Solu-Medrol last night. Will follow this up with low dose prednisone p.o. He was initiated on his Coumadin yesterday and is tolerating therapy well, although he does continue to show thrombocytopenia. Will closely monitor both his platelet count and INRs with concerns for possible bleeding. He was started on Digoxin, he was loaded with 250 and continued with additional doses and has shown therapeutic level this morning as well as good control of his heart rate without any complications in combination with Sotalol, therefore will continue with current regimen of Sotalol and Digoxin. Will anticipate hopefully being able to discharge tomorrow after reevaluation and repeat laboratory studies. Until then, will continue to monitor and treat appropriately. Once discharged, the patient will certainly need to have an echocardiogram completed and close followup in regards to new medications, including his Coumadin levels. #[id number] [facility]
[2017-12-14] MEDS: LEVALBUTEROL NEBS 1.25 MG/3 ML VIAL NEB PRN ×2 (00:08→05:47)
[2017-12-14] MEDS: predniSONE 20 MG TAB PO SCH (08:52)
[2017-12-14] MEDS: ASPIRIN TABLET 325 MG TAB PO SCH (08:52)
[2017-12-14] MEDS: OSELTAMIVIR 75 MG CAP PO SCH ×2 (08:53→21:05)
[2017-12-14] MEDS: SOTALOL 80 MG TAB PO SCH ×2 (08:53→21:05)
[2017-12-14] MEDS: POTASSIUM CHLORIDE 10 MEQ TAB PO SCH (08:53)
[2017-12-14] MEDS: FUROSEMIDE 40 MG TAB PO SCH ×2 (08:53→17:22)
[2017-12-14] MEDS: SODIUM CHLORIDE 0.9% (FLUSH) 10 ML SYG IV SCH ×2 (08:54→21:06)
[2017-12-14] MEDS ORDERED: NICOTINE PATCH 14 MG TD SCH (11:00)
[2017-12-14] MEDS: levoFLOXacin 500 MG TAB PO SCH (11:01)
[2017-12-14] MEDS ORDERED: FUROSEMIDE 40 MG TAB ONE (11:05)
[2017-12-14] MEDS: WARFARIN SODIUM 5 MG TAB PO SCH (12:19)
[2017-12-14] MEDS: DIGOXIN 0.125 MG TAB PO SCH (12:19)
--- NOTE | 2017-12-14 16:59 | PN ---
DATE: 12/14/17 SUPERVISING PHYSICIAN: Paul Tesfaye M.D. SUBJECTIVE: The patient continues to have improvement in his respiratory efforts and has actually been able to ambulate without significant difficulty. He denies any chest pains and his rhythm has been fairly well controlled on Sotalol and digoxin. He has had no normal vaginal delivery and remains afebrile. OBJECTIVE: VITAL SIGNS: temperature 97.7, pulse 87 to 1102, irregular. Blood pressure 102/ 66. Respirations 16, saturation 95% on room air. I's and O's show a negative balance of 2912 with 1680 in, 4600 out. Weight is 86.91 kg which is again down from previous day of 89.1 kg. CHEST: Lungs are somewhat better aerated today but continues to have some mild inspiratory and expiratory wheezing more so on the right than left. No rales or rhonchi. HEART: Slightly Irregular rate and rhythm with continued controlled ventricular rate as noted on palpation and bedside monitor. ABDOMEN: Soft, non-tender. Positive bowel sounds. EXTREMITIES: No clubbing, cyanosis or edema. NEUROLOGIC: He is alert and oriented times three. LABORATORY: CBC today shows a normal white count at 9,300, hemoglobin 14.7, hematocrit 43.9, platelet count is at 77,000 which is improved from 74,000 yesterday. Chemistries show normal electrolytes with potassium 3.9, BUN 25, creatinine 1.0 which is improved from previous days. Glucose 90, calcium 8.1. Total bilirubin and AST both within normal limits. AST was slightly elevated at 114. Today's digoxin level is 1.9. RADIOLOGY: No additional radiographic studies were completed today. ASSESSMENT: 1. Hypotension on admission secondary to administration of both a beta jodee including Sotalol and calcium channel jodee in the form of Diltiazem in attempts to control his ventricular rate and atrial fibrillation with the patient having left against medica advice and returning shortly as she was having significant side effects from the hypotension. 2. Acute onset of congestive heart failure with the patient having no formal history of congestive heart failure with uncertain etiology at this point with the patient having an elevated BNP of 554 and showed good response with diuresis and further control of his ventricular rate. The patient will need echocardiogram at discharge. 3. Atrial fibrillation, chronic, with rapid ventricular response on admission requiring initiation of Digoxin along with close monitoring of Sotalol as well as restarting his anticoagulation therapy with Coumadin. 4. Dyspnea secondary to underlying congestive heart failure exacerbated by atrial fibrillation with a rapid ventricular response and recent Influenza infection with flu B showing good response with treatment. 5. Chronic obstructive pulmonary disease in a chronic smoker with exacerbation secondary to recent viral infection with more likely a pneumonitis versus a community acquired pneumonia possibly of the right lower lobe.requiring initiation of antibiotic therapy and aggressive patient underwent hygiene and showed good response to treatment. 6. Nicotine addiction in a chronic smoker with continuation of encouragement to stop smoking. 7. Persistent thrombocytopenia showing some slight improvement today,etiology is uncertain. Will continue to monitor closely. PLAN: The patient today has been transitioned to p.o. medication to include p.o. prednisone, Lasix 20 mg in the morning along with p.o. potassium. Will continue to monitor on the cardiac telemetry and adjust his Sotalol as required. He does remain on digoxin now 0.125 mg daily. It appears to be holding a steady state. I will order ambulatory studies to further assess his oxygenation needs at discharge. Will continue to monitor his laboratory studies. In regards to PT/INR in efforts to establish a therapeutic Coumadin level. All other laboratory studies have been fairly stable. Will continue to monitor as needed. Will anticipate discharge tomorrow with the patient having to be discharged on Sotalol 80 mg b.i.d., digoxin 0.125 mg daily, potassium 10 mEq daily and Coumadin, dosage to be yet determined. Also, the patient will need an echocardiogram and close followup once discharged. Until then, we will continue to monitor and treat appropriately. #[id number] [facility]
[2017-12-14] MEDS: PANTOPRAZOLE SODIUM IV 40 MG VIAL IV SCH (21:05)
[2017-12-15] MEDS: IV SET AND CAP CHANGE INJ INJ SCH (00:12)
[2017-12-15] MEDS: POTASSIUM CHLORIDE 10 MEQ TAB PO SCH (07:43)
[2017-12-15] MEDS: FUROSEMIDE 40 MG TAB PO SCH (08:41)
[2017-12-15] MEDS: SOTALOL 80 MG TAB PO SCH (08:41)
[2017-12-15] MEDS: ASPIRIN TABLET 325 MG TAB PO SCH (08:41)
[2017-12-15] MEDS: predniSONE 20 MG TAB PO SCH (08:42)
[2017-12-15] MEDS: SODIUM CHLORIDE 0.9% (FLUSH) 10 ML SYG IV SCH (08:42)
[2017-12-15] MEDS: OSELTAMIVIR 75 MG CAP PO SCH (08:42)
[2017-12-15] MEDS ORDERED: WARFARIN SODIUM 5 MG TAB PO ONE (09:15)
[2017-12-15 10:15] VITALS: O2SAT 97
[2017-12-15 10:17] VITALS: BP 120/72; TEMP 97.8
[2017-12-15] MEDS: levoFLOXacin 500 MG TAB PO SCH (11:08)
[2017-12-15] MEDS: DIGOXIN 0.125 MG TAB PO SCH (11:50)
--- NOTE | 2017-12-16 09:31 | DS ---
SUPERVISING PHYSICIAN: Paul Tesfaye MD DISCHARGE DIAGNOSIS: 1. Hypotension on admission secondary to administration of both a beta jodee including Sotalol and calcium channel jodee in the form of Diltiazem in attempts to control his ventricular rate and atrial fibrillation with the patient having left against medical advice being able to be stabilized and returning shortly thereafter to the Emergency Room with significant side effects including hypotension, improved with modification of medication regimen to include digoxin and Sotalol, stable. 2. Acute onset of congestive heart failure with the patient having no formal history noted in the patient's chart and uncertain etiology at this point with the patient having an elevated BNP of 554 on admission, but showing good response with diuresis and further control of his ventricular rate with digoxin. The patient was stable and showing controlled ventricular rate on Sotalol and digoxin, but will need further workup to include echocardiogram in the near future after discharge. 3. Atrial fibrillation, chronic, with rapid ventricular response on admission requiring initiation of digoxin along with Sotalol and close monitoring and restarting of his Coumadin. 4. Dyspnea secondary to underlying congestive heart failure exacerbated by atrial fibrillation with a rapid ventricular response and exacerbation of chronic obstructive pulmonary disease with recent Influenza infection of flu B, but showing good response with therapy. 5. Chronic obstructive pulmonary disease in a chronic smoker with exacerbation secondary to recent viral infection, most likely a pneumonitis rather than a community acquired pneumonia, although the patient was showing good response with treatment and x-ray showed a right lower lobe infiltrate initially with the patient improving prior to discharge. 6. Nicotine addiction, chronic, with the patient continuing to be encouraged to stop smoking. 7. Persistent thrombocytopenia, uncertain etiology, but showing some improvement prior to discharge. Need further followup in outpatient setting. REASON FOR HOSPITALIZATION: Mr. Davenport is a 57-year-old male patient who initially came to the Emergency Room on 12/11/17 with complaints of shortness of breath as well as bloody sputum. He had been released from the hospital approximately 5 hours prior to that and he left the hospital against medical advice. He had been in the hospital due to his atrial fibrillation with rapid ventricular response and had seen Dr. Lizarraga, cmm inspector, the afternoon prior to his leaving against medical advice. Dr. Lizarraga had started him on some Sotalol and Cardizem and after taking new medications, he left the hospital. Prior to leaving the hospital, he had received Sotalol 80 mg and Cardizem 240 mg. Prior to his discharge, Dr. Lizarraga had recommended that he be started on Coumadin as well, but that was not done due to him leaving against medical advice. In the Emergency Room his vital signs showed he was afebrile, his heart rate ranged from 101 to 126. His blood pressure was as low as 58/30 and on admission to the Floor it had improved to 88/47. His 02 saturation had been in the mid 90s. The patient was then admitted to the Medical/Surgical Floor for exacerbation of chronic obstructive pulmonary disease, congestive heart failure and atrial fibrillation with rapid ventricular response requiring close monitoring for medication regimen management. He was admitted in stable condition. LABORATORY: White count on admission was 9,200 and at discharge it was essentially unchanged at 9,300. Hemoglobin and hematocrit were stable at 14.7 and 43.9. Platelet count is 77,000, which was down from admission of 97,000, but showing improvement from previous days of 74,000. Differential did show a left shift initially, but this had resolved prior to discharge after initiation of antibiotic therapy. Coagulation studies initially on admission showed he was nontherapeutic with 11.2 PT and INR 0.91, but his PT-T was slightly elevated at 41.8 as well as D-dimer at 231. Additional studies on his PTs were completed as he was treated with warfarin. On the morning of discharge, PT was subtherapeutic at 13.8 with INR 1.22. Chemistries on admission showed a low carbon dioxide, but normal electrolytes. By discharge, his electrolytes had normalized with BUN 25, creatinine 1.0, calcium 8.8, bilirubin 1.1, AST 40, ALT 114, alkaline phosphatase normal at 38. He did have a BNP that was elevated at 554 initially with troponin 0.03. He had three levels of digoxin, one prior to initiation of digoxin was 0.3 and after loading on digoxin and stabilizing, he was therapeutic at 1.9 prior to discharge. MICROBIOLOGY: No specimens submitted. RADIOLOGY: Chest x-ray in the Emergency Department prior to admission per radiologic interpretation showed vague reticular opacities in the right lung which could represent asymmetry mild pulmonary edema versus atelectasis or other etiologies not excluded. This was followed up with a repeat chest x-ray and on 12/13/17 final chest x-ray per radiologic interpretation of two view chest showed no acute pulmonary process. No additional radiographic studies were submitted. HOSPITAL COURSE: Mr. Davenport was admitted as noted in reason for hospitalization after he left against medical advice earlier and then back to the Emergency Room on 12/11/17 with atrial fibrillation with rapid ventricular response and dyspnea. He was aggressively treated with diuresis with Lasix, Bumex and aggressive pulmonary hygiene. Given his smoking status and chronic obstructive pulmonary disease, he was started on Levaquin with concerns for bronchitis as well as community acquired pneumonia. He was kept on Sotalol 80 mg b.i.d. and after initiation of digoxin and loading, he did show better control. On the day of discharge, vital signs showed that his pulse was 91 to 110 with blood pressure 120/72 with O2 saturation 95% on room air with respiratory rate 18. He also had a ambulatory study and prior to ambulation saturation was 97%. During ambulation to 219 feet at 6 minutes, he was continuing to sat 97%. After ambulation, he was satting 97%. His pulse rate ranged in the 70s. According to the respiratory therapist, he showed no distress and tolerated the ambulation well. Again heart rate stayed between 62 and 70. After it was noted he was stable on Sotalol and digoxin with the digoxin being therapeutic, it was felt he had been significantly diuresed with well over 6 to 7 liters of fluid pulled off and dropped well over 8 pounds prior to discharge. His symptomatology was much less and was reporting that he could actually lay down and breathe and was walking without any oxygen. Efforts were made to reestablish his Coumadin levels, however, he was not therapeutic prior to discharge, so arrangements were made for him to continue with Coumadin at home and repeat levels done until he was seen in office. PLAN: Mr. Davenport was discharged on 12/15/17 with instructions to have close clinical followup with both Dr. Lizarraga and Dr. Rosado. He was scheduled to see Dr. Rosado on 12/21/17 at 2:30 PM. He was to call and establish an appointment in [address] Lizarraga. He was to resume his home medications as instructed. He was instructed to go to the lab in the hospital on Thursday to have another Coumadin level drawn to further check his PT and INR before further adjustment of his Coumadin levels. The lab was instructed to call the results to Dr. Rosado on Thursday morning or hospice insulation hoseman or myself per detailed instructions. He was told to return to the hospital should he have any concerning symptoms and to monitor his weight and he should have any change in weight more than 3 pounds in 24 hours that he could take an additional Lasix and call Dr. Rosado should he have worsening symptoms. DISCHARGE DIET: Low sodium, low cholesterol diet. ACTIVITY: Increase as tolerated. He was encouraged to stop smoking and avoid caffeine drinks. DISCHARGE MEDICATIONS: 1. Albuterol inhaler 1 q.4h. as needed for shortness of breath. 2. Digoxin 0.125 mg daily for 30 days. 3. Levaquin 500 mg q.24h. for 5 days. 4. Potassium chloride Micro-K 10 mEq daily at breakfast, #30. 5. Prednisone 20 tablets for 5 days. 6. Warfarin initially 10 mg for 1 day, then start 5 mg daily until labs are completed on Thursday or he was seen in the office by Dr. Rosado. It is suggested that he have an echocardiogram at some point given that he had a congestive heart failure exacerbation and there was no formal records with any evidence of an echocardiogram in the recent past year. CONDITION AT DISCHARGE: Stable and improved. He was discharged on 12/15/17. #[id number] [facility]
== END 2017-12-15 12:30 | disposition home or self-care (01) | DRG 308 ==
LOC: ER 20:49 → OBSVTOIN 23:21 → MS 23:21
PROVIDERS: ADMIT Nurse Practitioner Acute Care; ATTEND Nurse Practitioner Family
DX: I48.2 Chronic atrial fibrillation (principal); J18.9 Pneumonia, unspecified organism; R04.2 Hemoptysis; J44.1 Chronic obstructive pulmonary disease with (acute) exacerbation; J44.0 Chronic obstructive pulmonary disease with (acute) lower respiratory infection; I95.2 Hypotension due to drugs; T46.1X5A Adverse effect of calcium-channel blockers, initial encounter; T44.7X5A Adverse effect of beta-adrenoreceptor antagonists, initial encounter; T45.515A Adverse effect of anticoagulants, initial encounter; F17.210 Nicotine dependence, cigarettes, uncomplicated; D69.6 Thrombocytopenia, unspecified; I50.9 Heart failure, unspecified; J10.1 Influenza due to other identified influenza virus with other respiratory manifestations; Y92.230 Patient room in hospital as the place of occurrence of the external cause; I25.2 Old myocardial infarction; Z91.19 Patient's noncompliance with other medical treatment and regimen; Z95.5 Presence of coronary angioplasty implant and graft; Z79.82 Long term (current) use of aspirin

== ENCOUNTER → 2017-12-18 | Outpatient (CLI) | payer SELFPAY | LOC: LAB.O 07:08 | PROVIDERS: ATTEND Nurse Practitioner Family | DX: I48.91 Unspecified atrial fibrillation (principal) ==

== ENCOUNTER 2018-03-19 00:23 | Emergency (ER) | payer SELFPAY ==
[2018-03-19] MEDS ORDERED: CYCLOBENZAPRINE HCL 10 MG TAB PO ONE (00:44)
[2018-03-19] MEDS ORDERED: HYDROcodone 10MG/APAP 325MG 1 EA TAB PO ONE (00:44)
[2018-03-19] MEDS ORDERED: predniSONE 20 MG TAB PO ONE (00:44)
--- NOTE | 2018-03-19 00:47 | ED.PDOC ---
History of Present Illness - General Chief Complaint: Back Pain or Injury Stated Complaint: chronic back pain, left leg numbness Time Seen by Provider: 03/19/18 00:36 Source: patient Exam Limitations: no limitations - History of Present Illness Initial Comments: the patient is a 58-year-old male presenting with chronic low back pain with an acute flare. He has been flaring since this morning. He has inflammation of her bilateral sacroiliac joints and his L5-S1 joint. This is not a new issue. No new trauma. He has been taking a lot of Aleve today with little relief.he does have chronic sciatica bilaterally. He has been to several back specialists in the past. No new weakness or incontinence. Timing/Duration: unsure Severity: moderate Improving Factors: nothing Worsening Factors: nothing Associated Symptoms: denies symptoms Allergies/Adverse Reactions: Allergies NO KNOWN ALLERGY Allergy (Verified 12/11/17 23:35) Home Medications: Ambulatory Orders Sotalol HCl 80 mg PO BID #60 tab 12/11/17 Albuterol Inhaler [Ventolin Hfa Inhaler] 1 puff INH Q4H PRN #1 inh 12/15/17 Digoxin [Lanoxin Tab] 0.125 mg PO DAILY #30 tab 12/15/17 Potassium Chloride Tab [Micro-K] 10 meq PO DAILYBK #30 tab 12/15/17 Warfarin Sodium [Coumadin] 5 mg PO DAILY #7 tab 12/15/17 Warfarin Sodium [Coumadin] 10 mg PO DAILY 1 Days #1 tab 12/15/17 levoFLOXacin [Levaquin] 500 mg PO Q24H #5 tab 12/15/17 predniSONE 20 mg PO DAILY #5 tab 12/15/17 Yhlxdvypduosw-Oqga-Flaqqimblc [Fioricet] 1 ea PO Q8H PRN #21 tab 03/19/18 Cyclobenzaprine HCl [Flexeril] 10 mg PO Q8HR PRN #30 tab 03/19/18 predniSONE [Prednisone] 20 mg PO DAILY #4 tab 03/19/18 Review of Systems - Review of Systems Constitutional: States: no symptoms reported EENTM: States: no symptoms reported Respiratory: States: no symptoms reported Cardiology: States: no symptoms reported Gastrointestinal/Abdominal: States: no symptoms reported Genitourinary: States: no symptoms reported Musculoskeletal: States: see HPI Skin: States: no symptoms reported Neurological: States: see HPI Endocrine: States: no symptoms reported All other Systems: No Change from Baseline Past Medical History (General) - Patient Medical History Hx Seizures: No Hx Stroke: No Hx Dementia: No Hx Asthma: No Hx of COPD: No Hx Cardiac Disorders: Yes - SD at age 49 Hx Congestive Heart Failure: Yes - Pt thinks he has CHF Hx Pacemaker: No Hx Hypertension: No Hx Thyroid Disease: No Hx Diabetes: No Hx Gastroesophageal Reflux: No Hx Renal Disease: No Hx Cancer: No Hx of HIV: No Hx Hepatitis C: No Hx MRSA: No Surgical History: no surgical history - Vaccination History Hx Tetanus, Diphtheria Vaccination: No Hx Influenza Vaccination: No Hx Pneumococcal Vaccination: No - Social History Hx Tobacco Use: Yes Hx Chewing Tobacco Use: No Hx Alcohol Use: No Hx Substance Use: No Hx Substance Use Treatment: No Hx Depression: No Hx Physical Abuse: No Hx Emotional Abuse: No Hx Suspected Abuse: No - Female History Patient : No Family Medical History - Family History Mother Family History: Unknown Physical Exam - Physical Exam General Appearance: Alert, Other - obviously uncomfortable Eye Exam: bilateral normal Ears, Nose, Throat: hearing grossly normal, normal ENT inspection, other - poor dentition. Smells of smoke. Neck: full range of motion, supple Respiratory: no respiratory distress, no accessory muscle use Cardiovascular/Chest: normal peripheral pulses, no edema, other - mild tachycardia Peripheral Pulses: radial,right: 2+, radial,left: 2+, dorsalis pedis,right: 2+, dorsalis pedis,left: 2+ Gastrointestinal/Abdominal: non tender, soft Rectal Exam: deferred Back Exam: other - diffuse discomfort over bilateral sacroiliac joints as well as L4-S1 No evidence of any new trauma. 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 He was given a dose of prednisone, hydrocodone and Flexeril. He'll be written for Flexeril for as needed use for the next several days as well as another 4 days of oral prednisone. He'll be written for Fioricet for as needed use for pain control initially. He does need to notify his primary care doctor's office about today's visit in case they want any change in the medication regimen. Heat pad may also help. Needs to keep himself well hydrated. ER warnings were given. He should plan on following up with his primary care doctor next week. Departure - Departure Clinical Impression: Chronic low back pain with bilateral sciatica Qualifiers: Back pain laterality: bilateral Qualified Code(s): M54.42 - Lumbago with sciatica, left side; M54.41 - Lumbago with sciatica, right side; G89.29 - Other chronic pain Disposition: Discharge to Home or Self Care Condition: Fair Departure Forms: ED Discharge - Pt. Copy, Patient Portal Self Enrollment Instructions: DI for Back Pain With Sciatica Diet: regular diet Activity: increase activity as tolerated Referrals: Peña Rosado MD [Primary Care Provider] - 1-5 Days Prescriptions: Cyclobenzaprine HCl [Flexeril] 10 mg PO Q8HR PRN #30 tab PRN Reason: Muscle Spasms Csuufjepxfwnn-Nsnt-Ihrewocmwv [Fioricet] 1 ea PO Q8H PRN #21 tab PRN Reason: Pain predniSONE [Prednisone] 20 mg PO DAILY #4 tab Home Medications: Ambulatory Orders Sotalol HCl 80 mg PO BID #60 tab 12/11/17 Albuterol Inhaler [Ventolin Hfa Inhaler] 1 puff INH Q4H PRN #1 inh 12/15/17 Digoxin [Lanoxin Tab] 0.125 mg PO DAILY #30 tab 12/15/17 Potassium Chloride Tab [Micro-K] 10 meq PO DAILYBK #30 tab 12/15/17 Warfarin Sodium [Coumadin] 5 mg PO DAILY #7 tab 12/15/17 Warfarin Sodium [Coumadin] 10 mg PO DAILY 1 Days #1 tab 12/15/17 levoFLOXacin [Levaquin] 500 mg PO Q24H #5 tab 12/15/17 predniSONE 20 mg PO DAILY #5 tab 12/15/17 Adgpnetvzvzqj-Ooxk-Ghjamcxtae [Fioricet] 1 ea PO Q8H PRN #21 tab 03/19/18 Cyclobenzaprine HCl [Flexeril] 10 mg PO Q8HR PRN #30 tab 03/19/18 predniSONE [Prednisone] 20 mg PO DAILY #4 tab 03/19/18 Additional Instructions: the patient is a 58-year-old male presenting with acute on chronic low back pain with associated sciatica. He was given a dose of prednisone, hydrocodone and Flexeril. He'll be written for Flexeril for as needed use for the next several days as well as another 4 days of oral prednisone. He'll be written for Fioricet for as needed use for pain control initially. He does need to notify his primary care doctor's office about today's visit in case they want any change in the medication regimen. Heat pad may also help. Needs to keep himself well hydrated. ER warnings were given. He should plan on following up with his primary care doctor next week. he should also have his INR checked early next week
[2018-03-19 00:54] VITALS: TEMP 96.7
[2018-03-19 01:05] VITALS: BP 151/95; O2SAT 96
== END 2018-03-19 01:17 | disposition home or self-care (01) ==
LOC: ER 00:23
DX: G89.29 Other chronic pain (principal); M54.41 Lumbago with sciatica, right side; I25.2 Old myocardial infarction; Z79.01 Long term (current) use of anticoagulants; Z79.899 Other long term (current) drug therapy

== ENCOUNTER → 2018-11-11 | Outpatient (CLI) | payer SELFPAY | LOC: RESP 11:54 | PROVIDERS: ATTEND Nurse Practitioner Family | DX: I48.0 Paroxysmal atrial fibrillation (principal); J44.1 Chronic obstructive pulmonary disease with (acute) exacerbation ==

== ENCOUNTER → 2018-11-11 | Outpatient (CLI) | payer OTHER ==
--- NOTE | 2018-11-11 14:26 | RAD ---
EXAM DESCRIPTION: Chest,2 Views CLINICAL HISTORY: J44.1 shortness of breath and COPD COMPARISON: December 13, 2017 FINDINGS: Two-view chest x-ray shows cardiomediastinal silhouette and pulmonary vasculature to be within normal limits. Enlargement of the main pulmonary arteries is again seen. The lungs are normally aerated and clear. Interval resolution of the infiltrate and left perihilar and lower lobe region seen on previous exam. Costophrenic angles are sharp. Osseous structures are unremarkable IMPRESSION: No radiographic evidence of acute cardiopulmonary disease. Electronically signed by: Kurt Meza MD 11/11/2018 2:24 PM [facility]
== END ==
LOC: LAB.O 12:01
PROVIDERS: ATTEND Nurse Practitioner Family
DX: J44.1 Chronic obstructive pulmonary disease with (acute) exacerbation (principal); I48.0 Paroxysmal atrial fibrillation

== ENCOUNTER → 2020-09-21 | Outpatient (CLI) | payer SELFPAY ==
--- NOTE | 2020-09-21 15:29 | CT ---
EXAM DESCRIPTION: CTA Chest CLINICAL HISTORY: 60 years Male, PAIN IN LEFT LEG TECHNIQUE: Volumetric CT angiographic data acquisition of the thorax was obtained. Standard axial and CT angiographic MIP sagittal and coronal images are submitted. This exam was performed according to our departmental dose-optimization program, which includes automated exposure control, adjustment of the mA and/or kV according to patient size and/or use of iterative reconstruction technique. COMPARISON: None available FINDINGS: The thyroid gland is unremarkable. No axillary adenopathy. Atherosclerotic plaque in the thoracic aorta. Cardiomegaly. Dense coronary artery calcifications. No pericardial effusion. No evidence of acute process in the visualized upper abdomen. Prominent mediastinal lymph nodes which are not enlarged by CT size criteria. No pulmonary embolus. Trace right pleural effusion. Mild emphysema. No pneumothorax. No focal consolidation. Bibasilar dependent atelectasis. No focal consolidation. No acute or suspicious osseous abnormality. Scattered degenerative changes present. IMPRESSION: 1. No pulmonary embolus. 2. Trace right pleural effusion with bibasilar dependent atelectasis. Electronically signed by: Brady Pineda MD 09/21/2020 3:27 PM [facility]
--- NOTE | 2020-09-21 18:19 | US ---
EXAM: US Duplex Left Lower Extremity Veins CLINICAL HISTORY: The patient is 60 years old and is Male; PAIN IN LEFT LEG TECHNIQUE: Real-time duplex ultrasound scan of the left lower extremity veins integrating B-mode two-dimensional vascular structure, Doppler spectral analysis, color flow Doppler imaging and compression. COMPARISON: No relevant prior studies available. FINDINGS: Deep veins: Unremarkable. No DVT in the visualized common femoral, femoral, proximal deep femoral or popliteal veins. The veins demonstrate normal color flow, are normally compressible, with normal phasic flow and/or augmentation response. Superficial veins: Unremarkable. No thrombus in the visualized great saphenous vein. Soft tissues: No acute findings. No popliteal cyst. IMPRESSION: No evidence of acute DVT, left lower extremity. Electronically signed by: Sabi Chaidez MD 09/21/2020 6:17 PM [facility]
== END ==
LOC: LAB.O 13:34
PROVIDERS: ATTEND Nurse Practitioner Family
DX: M79.605 Pain in left leg (principal); J90 Pleural effusion, not elsewhere classified; J98.11 Atelectasis

== ENCOUNTER → 2020-10-09 | Outpatient (CLI) | payer SELFPAY ==
--- NOTE | 2020-10-10 12:37 | MRI ---
EXAM DESCRIPTION: Lumbar Spine w/o Contrast : Magnetic Resonance Imaging. CLINICAL HISTORY: pain in left leg COMPARISON: MRI scan lumbar spine without contrast July 2016 TECHNIQUE: Multiplanar, multiple standard sequences, non contrast MRI, lumbar spine. FINDINGS: L5-S1: The disc is well visualized on axial T2 series 501, image 3. Disc desiccation and disc space loss. 3 mm anterolisthesis grade 1. Moderate endplate reactive changes left of midline encroaching on the canal, left subarticular recess and left foramen which is stenotic. Abutting the descending left S1 nerve in the subarticular recess. Hyperintense T2 annular fissure in the posterior disc margin midline and left of midline. There is since the prior study. Hypertrophic changes in the posterior flavum ligaments and facet joints (canal elements) canal is patent. Severe right foraminal narrowing. Rudimentary S1-S2 disc with possible mild transition of the S1 sacral segment stable since the prior study. L4-L5: Disc desiccation and minimal disc space loss. Tiny posterior bulge. Trace retrolisthesis. Minimal hypertrophic changes in the canal elements. Canal patent. Moderate to severe right foraminal narrowing and invp-te-fizkacud left foraminal narrowing. L3-L4: Minimal disc desiccation with disc space preserved. Mild hypertrophic changes in the canal elements. Mild right foraminal narrowing and moderate foraminal narrowing. AP canal diameter 13 mm. L2-L3: Disc desiccation with disc space preserved. No posterior bulging. Hypertrophy of the canal elements. AP canal diameter 12 mm. Bilateral foramina are patent. L1-L2: Disc desiccation with no bulging. Disc space maintained. Hypertrophic changes in the canal elements. AP canal diameter 12 mm. Bilateral foramina are patent. T12-L1: Disc desiccation and disc space preserved. No bulging. Minimal hypertrophic changes in the canal elements. Canal is patent. Conus terminates at this level. The levoscoliosis L2-L4. Paravertebral soft tissues paraspinal muscle fatty atrophy.. Distal cord normal signal and caliber. Otherwise normal marrow signal in the remaining vertebral bodies and the posterior elements. Vertebral bodies are not compressed at any level. IMPRESSION: 1. Multilevel disc desiccation and hypertrophic changes in the flavum ligaments and facet joints. 2. Left posterior and left intraforaminal encroachment by L5-S1 disc spur complex from spondylosis. Left foraminal stenosis. Also encroaching on the left subarticular recess abutting the left descending S1 nerve. This has progressed since the prior study. Severe right foraminal narrowing. 3. L4-L5 disc space loss and disc desiccation with bilateral foraminal narrowing. Stable since the prior study. 4. Refer to FINDINGS for discussion of results at specific disc space levels. Electronically signed by: Renny Birmingham MD 10/10/2020 12:36 PM [facility]
== END ==
LOC: MRI 10:07
PROVIDERS: ATTEND Nurse Practitioner Family
DX: M79.605 Pain in left leg (principal); M51.37 Other intervertebral disc degeneration, lumbosacral region; M24.28 Disorder of ligament, vertebrae; M46.96 Unspecified inflammatory spondylopathy, lumbar region; M25.78 Osteophyte, vertebrae

== ENCOUNTER 2020-10-21 14:58 | Emergency (ER) | payer SELFPAY ==
[2020-10-21] MEDS ORDERED: MAGNESIUM SULFATE PREMIX 2GM 2 GM in PREMIX BAG 1 BAG IVPB ONE (15:08)
[2020-10-21] MEDS ORDERED: METOPROLOL TARTRATE INJ 5 MG/5 ML VIAL IV ONE (15:08)
[2020-10-21] MEDS ORDERED: FUROSEMIDE INJ 40 MG/4 ML VIAL IV ONE (15:18)
--- NOTE | 2020-10-21 15:39 | RAD ---
EXAMINATION: Chest,1 View. HISTORY: 60 years Male. afib w rvr. . TECHNIQUE: XR CHEST 1 VIEW COMPARISON: Two-view chest 11/11/2018. Chest CT 09/20/2020 FINDINGS: Stable posterior healed right rib fractures. The cardiac silhouette size is slightly enlarged without evidence of vascular congestion or alveolar pulmonary edema. There is no evidence of pulmonary consolidation. No pleural effusion noted. No radiographically visible pneumothorax. No acute displaced fracture. IMPRESSION: Slight cardiomegaly without evidence of vascular congestion or pulmonary edema No radiographic evidence of definite acute pulmonary disease in the visualized chest. Electronically signed by: Ashu Phipps MD 10/21/2020 3:38 PM [facility]
[2020-10-21] MEDS ORDERED: HYDROcodone 5MG/APAP 325MG 1 EA TAB PO ONE (15:58)
[2020-10-21] MEDS ORDERED: AMIODARONE IV (LOAD) 150 MG in DEXTROSE 5% 100ML 100 ML IVPB ONE (16:06)
[2020-10-21] MEDS ORDERED: ASPIRIN TABLET 325 MG TAB PO ONE (16:22)
[2020-10-21] MEDS ORDERED: AMIODARONE IV (MAINT) 900 MG in DEXTROSE 5% (AVIVA) 500ML 500 ML IVPB SCH (16:30)
[2020-10-21] MEDS ORDERED: METOPROLOL TARTRATE 25 MG TAB PO ONE (17:11)
[2020-10-21] MEDS ORDERED: SODIUM CHLORIDE 0.9% 1000ML 500 ML IVS ONE ×2 (17:15→19:37)
[2020-10-21] MEDS ORDERED: ENOXAPARIN SODIUM 100 MG/ML SYG SUBCU ONE (19:44)
--- NOTE | 2020-10-21 20:04 | ED.PDOC ---
History of Present Illness - General Chief Complaint: General Stated Complaint: ATRIAL FIBRILLATION WITH RVR Time Seen by Provider: 10/21/20 15:01 Source: patient Exam Limitations: no limitations - History of Present Illness Initial Comments: The patient is a 60-year-old male presented emergency room by EMS secondary to severe shortness of breath with associated palpitations. EMS showed a heart rate of greater than 220 initially, narrow complex on their monitor. He received diltiazem with them initially which brought his heart rate down to the 170s. Blood pressures have remained borderline low ranging from 90- 115 on the systolic end. The patient does have 3+ edema to bilateral lower extremities which he reports has occurred in the last week. 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 He reports he does take his metoprolol and his Coumadin. The patient is uncertain when the last time was that he was actually in a normal sinus rhythm. We do not have any EKGs on him here in the last 5 years that were not in atrial fibrillation. The patient's lung segura are actually clear and he is saturating 95 to 98% on room air even though he is obviously feeling significant dyspnea. Initially the patient is pale with some mottling. That does improve with rate control and with some low flow oxygen by nasal cannula. He denies any chest pain just a feeling of palpitations. No fevers. He reports that he started noticing more dyspnea and more intermittent episodes of palpitations over the last week or so. He reports however long-term that he does get brief episodes of palpitations off and on for the last 5 years but they usually last less than 20 or 30 minutes. Again the edema is markedly worse over the last 2 to 3 days than it had been for a long time. Timing/Duration: unsure, 1 week, getting worse Severity: severe Improving Factors: nothing Worsening Factors: nothing Associated Symptoms: shortness of breath Allergies/Adverse Reactions: Allergies NO KNOWN ALLERGY Allergy (Verified 10/21/20 15:19) Home Medications: Ambulatory Orders Albuterol Inhaler [Ventolin Hfa Inhaler] 1 puff INH Q4H PRN #1 inh 12/15/17 Gabapentin 300 mg PO TID 10/21/20 Hydrochlorothiazide 25 mg PO DAILY 10/21/20 Tramadol HCl 50 mg PO Q6H PRN 10/21/20 Warfarin Sodium 7.5 mg PO DAILY 10/21/20 predniSONE 20 mg PO Q6HR PRN 10/21/20 Review of Systems - Review of Systems Constitutional: States: malaise, weakness - Generalized EENTM: States: no symptoms reported Respiratory: States: short of breath Cardiology: States: edema, palpitations Gastrointestinal/Abdominal: States: no symptoms reported Genitourinary: States: no symptoms reported Musculoskeletal: States: no symptoms reported Skin: States: no symptoms reported Neurological: States: anxiety Endocrine: States: no symptoms reported All other Systems: No Change from Baseline Past Medical History (General) - Patient Medical History Hx Seizures: No Hx Stroke: No Hx Dementia: No Hx Asthma: No Hx of COPD: Yes Hx Cardiac Disorders: Yes - NV, Afib Hx Congestive Heart Failure: Yes Hx Pacemaker: No Hx Hypertension: Yes Hx Thyroid Disease: No Hx Diabetes: No Hx Gastroesophageal Reflux: No Hx Renal Disease: No Hx Cancer: No Hx of HIV: No Hx Hepatitis C: No Hx MRSA: No Surgical History: coronary bypass surgery - Vaccination History Hx Tetanus, Diphtheria Vaccination: No Hx Influenza Vaccination: No Hx Pneumococcal Vaccination: No - Social History Hx Tobacco Use: Yes Hx Chewing Tobacco Use: No Hx Alcohol Use: No Hx Substance Use: No Hx Substance Use Treatment: No Hx Depression: No Hx Physical Abuse: No Hx Emotional Abuse: No Hx Suspected Abuse: No - Female History Patient is a Female of Child Bearing Age (10 -59 yrs old): No Patient : No Family Medical History - Family History Mother Family History: Unknown Physical Exam - Physical Exam General Appearance: Alert, Anxious, Frail, Obvious distress, Ill Appearing Eye Exam: bilateral normal Ears, Nose, Throat: hearing grossly normal, normal pharynx Neck: non-tender, supple Respiratory: lungs clear, normal breath sounds, other - Tachypneic Cardiovascular/Chest: normal peripheral pulses, tachycardia, irregularly irregular Peripheral Pulses: radial,right: 2+, radial,left: 2+ Gastrointestinal/Abdominal: non tender - Obese, soft Rectal Exam: deferred Back Exam: no CVA tenderness, no vertebral tenderness Extremity: normal range of motion, normal capillary refill, pedal edema 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, alert, oriented x 3 Skin Exam: mottled - This resolved fairly quickly with rate control and supplemental oxygen., pallor Comments: Vital Signs - 24 hr 10/21/20 10/21/20 10/21/20 15:15 15:22 16:30 Temperature 97.1 F L Pulse Rate [ 157 H 157 H 118 H Pulse ox] Respiratory 18 18 16 Rate Blood Pressure 121/81 87/69 [R arm] O2 Sat by Pulse 96 98 Oximetry 10/21/20 10/21/20 10/21/20 17:30 18:00 18:30 Temperature 97.3 F L Pulse Rate [ 133 H 123 H 129 H Pulse ox] Respiratory 12 16 15 Rate Blood Pressure 90/62 91/67 109/89 [R arm] O2 Sat by Pulse 97 97 97 Oximetry 10/21/20 10/21/20 19:00 20:00 Temperature 96.9 F L Pulse Rate [ 134 H 143 H Pulse ox] Respiratory 20 20 Rate Blood Pressure 97/75 104/84 [R arm] O2 Sat by Pulse 97 99 Oximetry Progress - Progress Progress: 10/21/20 20:08 The patient is a 60-year-old male presented emergency room secondary to severe A. fib with RVR. The patient is subtherapeutic on his Coumadin. He was therefore started on Lovenox. Given the low normal blood pressures it was elected to start amiodarone on the patient. This has improved the rate control down to an average heart rate of about 125 bpm. This is a marked improvement f rom around 200. He is looking much better at this point. Blood pressures have however remained borderline low. Lung segura have remained clear and he has received approximately 1500 cc of saline at this point, with lung segura remaining clear. I believe the patient was in a CHF exacerbation not due to fluid overload, but due to the rapid rate. Clinically I believe the patient was intravascularly depleted. Blood pressures have improved with this management and again lung segura have remained clear. Patient has apparently tolerated beta-blockers well in the past. We did not attempt to electrically cardiovert this patient as I believe it is likely been a long time since he has been in a normal sinus rhythm, and therefore believe we would have been unlikely to be successful. I am not able to perform adequate echocardiogram at this time to rule out an atrial thrombus. The patient does technically have a non-ST elevation myocardial infarction. I believe this is largely demand ischemia. The patient is having no chest pain. There are no ST segment elevations. He does however have more prominent T wave inversions in leads V5 and V6 when compared to previous EKGs. The patient was given a dose of Lovenox and aspirin. We are avoiding nitrates due to no chest pain and borderline blood pressures. The patient will be transferred to [facility] for higher level of care. A cceptance is greatly appreciated. Critical care time spent is 45 minutes. [email or web address] ren [id number] 10/21/20 20:13 - Results/Orders Results/Orders: 10/21/20 15:15 EKG STAT 10/21/20 16:30 Amiodarone IV (Maint) [Cordarone IV (Maint)] 900 mg Dextrose 5% (Corbin) 500Ml [D5W 500ml (CORBIN BAG)] 500 ml IVPB PRN 10/21/20 17:00 EKG STAT 10/21/20 19:37 Sodium Chloride 0.9% 1000ML [Ns 1000 ml] 500 ml IVS ONCE Laboratory Results - last 24 hr 10/21/20 10/21/20 10/21/20 15:20 15:20 15:20 WBC 10.5 RBC 5.31 Hgb 16.3 Hct 48.6 MCV 91.5 MCH 30.8 MCHC 33.6 RDW 17.1 H Plt Count 168 MPV 8.8 Absolute Neuts (auto) 8.30 H Absolute Lymphs (auto) 1.20 Absolute Monos (auto) 0.80 Absolute Eos (auto) 0.10 Absolute Basos (auto) 0.10 Neutrophils % 79.6 H Lymphocytes % 11.1 L Monocytes % 7.8 Eosinophils % 1.0 Basophils % 0.5 PT 12.1 H INR 1.22 H PTT (SP) 25.4 D-Dimer, Quantitative 220.0 Sodium 135 Potassium 3.5 L Chloride 91 L Carbon Dioxide 29 Anion Gap 18.5 H BUN 24 H Creatinine 1.15 BUN/Creatinine Ratio 20.9 H Random Glucose 103 Serum Osmolality 274.4 L Lactic Acid Calcium 8.9 Magnesium 2.0 Total Bilirubin 2.1 H* AST 33 ALT 87 H Alkaline Phosphatase 74 Creatine Kinase 37 L CK-MB (CK-2) 5.0 H* CK-MB (CK-2) % Not Reportable Troponin I 0.23 H* B-Natriuretic Peptide 951.0 H* Serum Total Protein 6.6 Albumin 3.5 Globulin 3.1 Albumin/Globulin Ratio 1.1 TSH 3.78 10/21/20 10/21/20 15:20 17:53 WBC RBC Hgb Hct MCV MCH MCHC RDW Plt Count MPV Absolute Neuts (auto) Absolute Lymphs (auto) Absolute Monos (auto) Absolute Eos (auto) Absolute Basos (auto) Neutrophils % Lymphocytes % Monocytes % Eosinophils % Basophils % PT INR PTT (SP) D-Dimer, Quantitative Sodium Potassium Chloride Carbon Dioxide Anion Gap BUN Creatinine BUN/Creatinine Ratio Random Glucose Serum Osmolality Lactic Acid 1.9 Calcium Magnesium Total Bilirubin AST ALT Alkaline Phosphatase Creatine Kinase 31 L CK-MB (CK-2) 4.1 CK-MB (CK-2) % Not Reportable Troponin I 0.28 H* B-Natriuretic Peptide Serum Total Protein Albumin Globulin Albumin/Globulin Ratio TSH Rapid coronavirus test is negative. Chest x-ray shows cardiomegaly but no overt fluid overload. No infiltrate. EKGs show atrial fibrillation with rapid ventricular rate. The initial 1 was at a rate of 154 bpm and subsequent was at 116 bpm. He does have mild right axis deviation. He does have criteria for LVH. He does have inverted T waves and V5 and V6 which is a new change when compared to previous EKGs. QT interval is initially within normal limits but mildly prolonged after amiodarone. No ST segment elevation. Departure - Departure Clinical Impression: Atrial fibrillation with RVR, Non-ST elevation NV (NSTEMI) CHF exacerbation Qualifiers: Heart failure type: combined systolic and diastolic Qualified Code(s): I50.43 - Acute on chronic combined systolic (congestive) and diastolic (congestive) heart failure Disposition: Transfer to Hospital Condition: Poor Departure Forms: ED Discharge - Pt. Copy, Patient Portal Self Enrollment Referrals: KYRIE CARLSON [employer] [Primary Care Provider] - 1-2 Weeks Home Medications: Ambulatory Orders Albuterol Inhaler [Ventolin Hfa Inhaler] 1 puff INH Q4H PRN #1 inh 12/15/17 Gabapentin 300 mg PO TID 10/21/20 Hydrochlorothiazide 25 mg PO DAILY 10/21/20 Tramadol HCl 50 mg PO Q6H PRN 10/21/20 Warfarin Sodium 7.5 mg PO DAILY 10/21/20 predniSONE 20 mg PO Q6HR PRN 10/21/20 Transfer to Outside Facility - Transfer Information Decision to Transfer Date: 10/21/20 Decision to Transfer Time: 20:14
[2020-10-21 20:06] VITALS: O2SAT 99
[2020-10-21 20:29] VITALS: BP 100/62; TEMP 97
== END 2020-10-21 20:47 | disposition short-term general hospital (02) ==
LOC: ER 14:58
DX: I48.91 Unspecified atrial fibrillation (principal); I21.4 Non-ST elevation (NSTEMI) myocardial infarction; R00.0 Tachycardia, unspecified; I50.43 Acute on chronic combined systolic (congestive) and diastolic (congestive) heart failure; I11.0 Hypertensive heart disease with heart failure; J44.9 Chronic obstructive pulmonary disease, unspecified; I25.2 Old myocardial infarction; Z20.828 Contact with and (suspected) exposure to other viral communicable diseases; Z79.01 Long term (current) use of anticoagulants; Z95.1 Presence of aortocoronary bypass graft; Z87.891 Personal history of nicotine dependence; Z79.899 Other long term (current) drug therapy
CPT/HCPCS: 36415; 71045; 80053; 82550; 82553; 83605; 83735; 83880; 84443; 84484; 85025; 85379; 85610; 85730; 87635; 93005; J0282; J1650; J1940; J3475; J7030; J7060